=== PATIENT | female | born 1955 | race Two or more races ===

== ENCOUNTER 2018-08-20 11:52 | Outpatient (CLI) | payer OTHER | END 2018-08-20 15:17 | disposition home or self-care (01) | LOC: RAD 11:52 | DX: M75.52 Bursitis of left shoulder (principal); M75.51 Bursitis of right shoulder ==

== ENCOUNTER 2018-10-07 08:42 | Outpatient (CLI) | payer OTHER | END 2018-10-07 08:54 | disposition home or self-care (01) | LOC: RAD 08:42 | DX: M25.561 Pain in right knee (principal); M25.511 Pain in right shoulder | CPT/HCPCS: 73721 ==

== ENCOUNTER → 2018-11-11 | Outpatient (CLI) | payer OTHER | END | disposition home or self-care (01) | LOC: NUCLEAR 11:00 | DX: M81.0 Age-related osteoporosis without current pathological fracture (principal) ==

== ENCOUNTER 2019-05-13 07:35 | Outpatient (CLI) | payer OTHER | END 2019-05-13 15:00 | disposition home or self-care (01) | LOC: EKG 07:35 | DX: R94.31 Abnormal electrocardiogram [ECG] [EKG] (principal); R91.8 Other nonspecific abnormal finding of lung field ==

== ENCOUNTER 2020-04-15 09:05 | Outpatient (CLI) | payer OTHER | END 2020-04-15 09:22 | disposition home or self-care (01) | LOC: SONOGRAMA 09:05 | PROVIDERS: ATTEND Specialist | DX: E04.1 Nontoxic single thyroid nodule (principal) ==

== ENCOUNTER 2021-05-30 08:00 | Outpatient (CLI) | payer OTHER | END 2021-05-30 08:30 | disposition home or self-care (01) | LOC: PPH VACUNA 08:00 | PROVIDERS: ATTEND Emergency Medicine Pediatric Emergency Medicine | DX: Z23 Encounter for immunization (principal) ==

== ENCOUNTER 2023-01-23 10:07 | Outpatient (CLI) | payer OTHER | END 2023-01-23 10:10 | disposition home or self-care (01) | LOC: SONOGRAMA 10:07 | PROVIDERS: ATTEND Family Medicine | DX: M77.31 Calcaneal spur, right foot (principal); M77.32 Calcaneal spur, left foot; R22.1 Localized swelling, mass and lump, neck ==

== ENCOUNTER → 2023-04-19 | Outpatient (CLI) | payer OTHER | END | disposition home or self-care (01) | LOC: RAD 10:28 | DX: J44.1 Chronic obstructive pulmonary disease with (acute) exacerbation (principal); R91.1 Solitary pulmonary nodule; R05.8 Other specified cough ==

== ENCOUNTER 2023-12-11 09:02 | Outpatient (CLI) | payer OTHER | END 2023-12-11 09:11 | disposition home or self-care (01) | LOC: SONOGRAMA 09:02 | PROVIDERS: ATTEND Family Medicine | DX: R31.9 Hematuria, unspecified (principal) ==